=== PATIENT | male | born 1985 | race Caucasian/White ===

== ENCOUNTER 2018-04-14 13:31 | Emergency (ER) | payer OTHER, BC ==
[2018-04-14] MEDS: CEFTRIAXONE 250 MG INJ IM (15:10)
[2018-04-14] MEDS: AZITHROMYCIN 250 MG TAB PO (15:11)
[2018-04-14] MEDS: LIDOCAINE 1% (MDV) 10 ML INJ INJ (15:11)
[2018-04-14 15:21] LABS: URINE PH (Dip) POC 7.5 (5.0-8.5)
[2018-04-14 15:21] LABS: URINE BLOOD (Dip) POC 2+ (NEGATIVE); URINE GLUCOSE (Dip) POC Negative (NEGATIVE); URINE KETONES (Dip) POC Negative (NEGATIVE); URINE LEUKOCYTE EST (Dip) POC 1+ (NEGATIVE); URINE NITRITE (Dip) POC Negative (NEGATIVE); URINE TOTAL PROTEIN POC 1+ (NEGATIVE)
== END 2018-04-14 16:05 | disposition home or self-care (01) ==
LOC: FTE 13:31
DX: N39.0 Urinary tract infection, site not specified (principal); F17.210 Nicotine dependence, cigarettes, uncomplicated
CPT/HCPCS: 81003; 96372; 99284-25